=== PATIENT | female | born 1985 | race American Indian/Alaskan Native ===

== ENCOUNTER 2018-01-26 11:44 | Emergency (ER) | payer BC, OTHER ==
[2018-01-26 11:48] VITALS: TEMP 98.5
[2018-01-26] MEDS ORDERED: Sodium Chloride 0.9% Inh Soln (3mL) UD INH ONE (13:42)
--- NOTE | 2018-01-26 13:46 | C.PDOC ---
History Of Present Illness 32 years old female with Hx of Cough-variant asthma, no intubation, and peak flow unknown, presents to ED for complaints of nasal congestion, rhinorrhea, and cough with yellow sputum that began 5 days ago. Patient states she was seen by Dr. Alegre on Saturday and was started on albuterol and steroid pump. Patient reports no improvement which prompted the ER visit. Denies fever, diarrhea, nausea or vomiting. Time Seen by Provider: 01/26/18 12:33 Chief Complaint (Nursing): Shortness Of Breath History Per: Patient History/Exam Limitations: no limitations Onset/Duration Of Symptoms: Days (5) Current Symptoms Are (Timing): Still Present Current Respiratory Medications: See Home Med List Associated Symptoms: Productive Cough (yellow sputum). denies: Fever, Chills Recent travel outside of the [place]: No Past Medical History Reviewed: Historical Data, Nursing Documentation, Vital Signs Vital Signs: Last Vital Signs Temp 98.5 F 01/26/18 11:47 Pulse 96 H 01/26/18 11:47 Resp 20 01/26/18 12:19 BP 132/92 H 01/26/18 11:47 Pulse Ox 98 01/26/18 13:56 - Medical History PMH: Asthma Family History: States: Unknown Family Hx - Social History Hx Tobacco Use: No Hx Alcohol Use: No Hx Substance Use: No - Immunization History Hx Tetanus Toxoid Vaccination: Yes Hx Influenza Vaccination: No Hx Pneumococcal Vaccination: No Review Of Systems Constitutional: Negative for: Fever, Chills ENT: Positive for: Nose Congestion, Other (Rhinorrhea) Respiratory: Positive for: Cough, Sputum (yellow ) Gastrointestinal: Negative for: Nausea, Vomiting, Abdominal Pain, Diarrhea Skin: Negative for: Rash Neurological: Negative for: Weakness, Numbness Physical Exam - Physical Exam Appears: Well, Non-toxic, No Acute Distress Skin: Normal Color, Warm, Dry Head: Atraumatic, Normacephalic Eye(s): bilateral: Normal Inspection, PERRL, EOMI Ear(s): Bilateral: Normal Nose: Other (Bilateral nasal congestion ) Oral Mucosa: Moist Throat: Normal, No Erythema, No Exudate, No Drooling Neck: Supple Chest: Symmetrical, No Tenderness Cardiovascular: Rhythm Regular, No Murmur Respiratory: Normal Breath Sounds, No Decreased Breath Sounds, No Rales, No Rhonchi, No Stridor, No Wheezing Gastrointestinal/Abdominal: Soft, No Tenderness Extremity: Normal ROM Neurological/Psych: Oriented x3, Normal Speech, Normal Cognition ED Course And Treatment O2 Sat by Pulse Oximetry: 98 (RA) Pulse Ox Interpretation: Normal Medical Decision Making Medical Decision Making: Impression: -- Asthma/ questionable seasonable allergy symptoms Treatment: -- Will try saline nebulizer and Claritin 1604 pt feeling bewtter after fuoneb. will d/c with duoneb, claritin. prednisone. f/u pmd. Disposition - Disposition Referrals: Yocasta Jones MD [Non-Staff] - Disposition: HOME/ ROUTINE Disposition Time: 16:06 Condition: IMPROVED Additional Instructions: Please use medications as prescribed. Use saline nebulizer meds as well. Follow up with Dr Jones in 1-2 days. REturn to ER for any worsening symptoms. Prescriptions: Albuterol/Ipratropium [Duoneb 3 MG/3 Ml-0.5 MG/3 Ml 3 Ml] 3 ml IH Q6 #30 neb Loratadine 10 mg PO DAILY #30 tablet predniSONE [predniSONE Tab] 2 tab PO DAILY #8 tab Instructions: Seasonal Allergies (DC), Asthma, Adult (DC) Forms: [employer] (Spanish) - Clinical Impression Clinical Impression: Seasonal allergies, Asthma - PA / [employer]OC[employer]ATE / Resident Statement MD/DO has reviewed & agrees with the documentation as recorded. - Scribe Statement The provider has reviewed the documentation as recorded by the Scribmarkell Arias All medical record entries made by the Scribe were at my direction and personally dictated by me. I have reviewed the chart and agree that the record accurately reflects my personal performance of the history, physical exam, medical decision making, and the department course for this patient. I have also personally directed, reviewed, and agree with the discharge instructions and disposition.
[2018-01-26] MEDS ORDERED: Albuterol-Ipratrop 3 mg / 0.5 (3 ml) UD ONE (15:11)
[2018-01-26] MEDS ORDERED: Albuterol-Ipratrop 3 mg / 0.5 (3 ml) UD INH STA (15:24)
[2018-01-26 16:27] VITALS: BP 119/84; PULSE 84; RESP 18; O2SAT 100
== END 2018-01-26 16:27 | disposition home or self-care (01) ==
LOC: C.ER 11:44
DX: J45.909 Unspecified asthma, uncomplicated (principal)